=== PATIENT | female | born 1950 | race Caucasian/White ===

== ENCOUNTER 2018-05-27 14:21 | Inpatient (IN) ==
[2018-05-27] MEDS ORDERED: METOCLOPRAMIDE 10 MG/2 ML VIAL IV STA (14:41)
[2018-05-27] MEDS ORDERED: ONDANSETRON 4 MG/2 ML VIAL IV STA ×2 (14:41→15:00)
[2018-05-27] MEDS ORDERED: PANTOPRAZOLE 40 MG VIAL IV STA (14:41)
[2018-05-27] MEDS ORDERED: SODIUM CHLORIDE 0.9% 1,000 ML IV STA ×2 (14:41→16:43)
[2018-05-27] MEDS ORDERED: DICYCLOMINE 20 MG/2 ML AMP IM ONE (14:41)
[2018-05-27 16:10] LABS: Basophils # 0.1 10*3/uL (0.0-0.2); Basophils % 0.5 % (0.0-0.8); Eosinophils % 0.2 % (0.00-10.9); Hemoglobin 14.2 GM/DL (12.0-16.0); Immature Granulocytes % 0.3 %; Immature Granulocytes Absolute 0.06 #; Lymphocytes # 1.5 10*3/uL (1.4-4.0); Lymphocytes % 8.6 % (21.3-54.2); Mean Corpuscular HGB Conc 32.3 GM/DL (32-36); Mean Corpuscular Hemoglobin 29 PG (27-34); Mean Corpuscular Volume 89.4 FL (87-102); Mean Platelet Volume 10.3 FL (9.6-12.0); Monocytes # 0.6 10*3/uL (0.11-0.8); Monocytes % 3.6 % (1.7-12.7); Neutrophils # 15.2 10*3/uL (1.4-7.4); Neutrophils % 86.8 % (38.7-73.9); Platelet Count 350 T/CUMM (130-400); Red Blood Count 4.92 MC/CUMM (3.8-5.5); Red Cell Distribution Width 13.6 % (9.3-17.3); White Blood Count 17.5 T/CUMM (4-12)
[2018-05-27 16:30] LABS: Alanine Aminotransferase 42 U/L (13-56); Albumin 3.9 G/DL (3.4-5.0); Alkaline Phosphatase 73 U/L (45-117); Amylase 38 U/L (25-115); Aspartate Amino Transferase 26 U/L (0-37); Blood Urea Nitrogen 19 MG/DL (7-18); Calcium 9.4 MG/DL (8.5-10.1); Glucose 178 MG/DL (74-106); Osmolality,Calculated 280.7 MOS/KG (273-304); Potassium 3.7 MMOL/L (3.5-5.1); Sodium 138 MMOL/L (136-145); Total Protein 8.7 G/DL (6.4-8.3); Troponin I < 0.015 NG/ML (0.00-0.045)
[2018-05-27] MEDS ORDERED: cefTRIAXone 1,000 MG in SODIUM CHLORIDE 0.9% 100 ML IV STA (16:41)
[2018-05-27] MEDS ORDERED: metroNIDAZOLE INJ 500 MG in PREMIX 1 EACH IV STA (16:42)
[2018-05-27 16:57] LABS: Apearance,Urine Slightly Hazy (Clear); Bacteria,Urine Moderate /HPF (Few); Bilirubin,Urine Negative (Negative); Blood, Urine Small mg/dL (Negative); Glucose,Urine (UA) Negative (Negative); Granular Casts,Urine 26 /LPF (0-1); Hyaline Casts,Urine 1 /LPF (0-3); Ketones,Urine 20 mg/dL (Negative); Mucus,Urine Moderate /LPF (Occasional); Nitrite,Urine Positive (Negative); Protein,Urine 100 MG/DL; RBC,Urine 1 /HPF (0-4); Squamous Epithelial Cell,Urine Occasional /HPF (0-10); Urine Color Amber (Yellow); Urine Urobilinogen < 2.0 EU/DL (0.2-1.0); WBC,Urine 6 /HPF (0-6)
[2018-05-27] MEDS ORDERED: ONDANSETRON 4 MG/2 ML VIAL IV PRN (17:39)
[2018-05-27] MEDS ORDERED: MORPHINE 4 MG/1 ML VIAL IV PRN (17:39)
[2018-05-27] MEDS ORDERED: ALBUTEROL 2.5 MG/3 ML NEB RESP TX PRN (17:39)
[2018-05-27] MEDS ORDERED: SODIUM CHLORIDE 0.9% 600 ML IV ONE (17:45)
[2018-05-27] MEDS ORDERED: GLUCAGON 1 MG VIAL IM PRN (18:12)
[2018-05-27] MEDS ORDERED: DEXTROSE 50% 25 GM/50 ML VIAL IV PRN (18:12)
[2018-05-27] MEDS: PANTOPRAZOLE 40 MG VIAL IV SCH (20:04)
[2018-05-27] MEDS: SODIUM CHLORIDE 0.9% 1,000 ML IV SCH (20:06)
[2018-05-27] MEDS: PIPERACILLIN/TAZOBACTAM 3,375 MG in SODIUM CHLORIDE 0.9% 100 ML IV SCH (20:06)
[2018-05-27 22:33] LABS: Lactic Acid 2.5 MMOL/L (0.4-2.0)
[2018-05-27] MEDS: INSULIN LISPRO 100 UNIT/ML SUBCUT SCH (23:03)
[2018-05-28] MEDS ORDERED: metroNIDAZOLE INJ 500 MG in PREMIX 1 EACH IV SCH (00:30)
[2018-05-28] MEDS: PIPERACILLIN/TAZOBACTAM 3,375 MG in SODIUM CHLORIDE 0.9% 100 ML IV SCH ×3 (04:11→18:44)
[2018-05-28] MEDS: SODIUM CHLORIDE 0.9% 1,000 ML IV SCH ×3 (04:12→21:42)
[2018-05-28 05:06] LABS: Basophils # 0.1 10*3/uL (0.0-0.2); Basophils % 0.4 % (0.0-0.8); Eosinophils # 0.1 10*3/uL (0.0-0.87); Eosinophils % 0.8 % (0.00-10.9); Hematocrit 32.9 VOL% (35.7-47.0); Hemoglobin 10.6 GM/DL (12.0-16.0); Immature Granulocytes % 0.4 %; Immature Granulocytes Absolute 0.05 #; Lymphocytes # 1.4 10*3/uL (1.4-4.0); Lymphocytes % 10.1 % (21.3-54.2); Mean Corpuscular HGB Conc 32.2 GM/DL (32-36); Mean Corpuscular Hemoglobin 29 PG (27-34); Mean Corpuscular Volume 90.1 FL (87-102); Mean Platelet Volume 10.8 FL (9.6-12.0); Monocytes % 7.2 % (1.7-12.7); Neutrophils # 11.3 10*3/uL (1.4-7.4); Neutrophils % 81.1 % (38.7-73.9); Platelet Count 269 T/CUMM (130-400); Red Blood Count 3.65 MC/CUMM (3.8-5.5); Red Cell Distribution Width 13.9 % (9.3-17.3); White Blood Count 13.9 T/CUMM (4-12)
[2018-05-28] MEDS ORDERED: METOPROLOL TARTRATE 5 MG/5 ML VIAL IV ONE (05:27)
[2018-05-28 05:29] LABS: Albumin 2.5 G/DL (3.4-5.0); Calcium 7.4 MG/DL (8.5-10.1); Total Protein 6.2 G/DL (6.4-8.3)
[2018-05-28] MEDS: INSULIN LISPRO 100 UNIT/ML SUBCUT SCH ×3 (05:29→18:41)
[2018-05-28 05:30] LABS: Hypochromasia 1+; Ovalocytes Slight; Platelet Estimate Adequate
[2018-05-28] MEDS ORDERED: ENOXAPARIN 100 MG/ML SYRINGE SUBCUT SCH (09:00)
[2018-05-28] MEDS: METOPROLOL TARTRATE 50 MG TABLET PO SCH ×2 (09:27→21:41)
[2018-05-28] MEDS: RIVAROXABAN 20 MG TABLET PO SCH (09:27)
[2018-05-28] MEDS: PANTOPRAZOLE 40 MG VIAL IV SCH (21:40)
[2018-05-29] MEDS: INSULIN LISPRO 100 UNIT/ML SUBCUT SCH ×4 (00:24→17:42)
[2018-05-29] MEDS: SODIUM CHLORIDE 0.9% 1,000 ML IV SCH ×2 (02:26→16:34)
[2018-05-29] MEDS: PIPERACILLIN/TAZOBACTAM 3,375 MG in SODIUM CHLORIDE 0.9% 100 ML IV SCH ×3 (04:47→22:10)
[2018-05-29 06:23] LABS: Basophils % 0.6 % (0.0-0.8); Eosinophils # 0.3 10*3/uL (0.0-0.87); Eosinophils % 3.9 % (0.00-10.9); Hematocrit 29.1 VOL% (35.7-47.0); Hemoglobin 9.4 GM/DL (12.0-16.0); Immature Granulocytes % 0.3 %; Immature Granulocytes Absolute 0.02 #; Lymphocytes # 2.4 10*3/uL (1.4-4.0); Lymphocytes % 35.4 % (21.3-54.2); Mean Corpuscular HGB Conc 32.3 GM/DL (32-36); Mean Corpuscular Hemoglobin 30 PG (27-34); Mean Corpuscular Volume 92.1 FL (87-102); Mean Platelet Volume 10.7 FL (9.6-12.0); Monocytes # 0.4 10*3/uL (0.11-0.8); Monocytes % 6.3 % (1.7-12.7); Neutrophils # 3.7 10*3/uL (1.4-7.4); Neutrophils % 53.5 % (38.7-73.9); Platelet Count 212 T/CUMM (130-400); Red Blood Count 3.16 MC/CUMM (3.8-5.5); Red Cell Distribution Width 14.2 % (9.3-17.3); White Blood Count 6.9 T/CUMM (4-12)
[2018-05-29 06:43] LABS: Albumin 2.7 G/DL (3.4-5.0); Bilirubin,Total 0.7 MG/DL (0.2-1.0); Calcium 7.4 MG/DL (8.5-10.1); Osmolality,Calculated 286.7 MOS/KG (273-304); Potassium 3.4 MMOL/L (3.5-5.1); Total Protein 6.1 G/DL (6.4-8.3)
[2018-05-29] MEDS ORDERED: ACETAMINOPHEN 500 MG TABLET PO ONE (07:00)
[2018-05-29] MEDS ORDERED: PNEUMOCOCCAL VACCINE (13 VALENT) 0.5 ML SYRINGE IM ONE (08:00)
[2018-05-29] MEDS: METOPROLOL TARTRATE 50 MG TABLET PO SCH ×2 (09:51→20:56)
[2018-05-29] MEDS: RIVAROXABAN 20 MG TABLET PO SCH (09:51)
[2018-05-29] MEDS: ACETAMINOPHEN 325 MG TABLET PO PRN (16:05)
[2018-05-29] MEDS: PANTOPRAZOLE 40 MG VIAL IV SCH (22:10)
[2018-05-30] MEDS: PIPERACILLIN/TAZOBACTAM 3,375 MG in SODIUM CHLORIDE 0.9% 100 ML IV SCH (03:43)
[2018-05-30 04:32] LABS: Basophils % 0.6 % (0.0-0.8); Eosinophils # 0.2 10*3/uL (0.0-0.87); Eosinophils % 3.5 % (0.00-10.9); Hematocrit 29.6 VOL% (35.7-47.0); Hemoglobin 9.6 GM/DL (12.0-16.0); Immature Granulocytes % 0.3 %; Immature Granulocytes Absolute 0.02 #; Lymphocytes # 2.7 10*3/uL (1.4-4.0); Lymphocytes % 41.6 % (21.3-54.2); Mean Corpuscular HGB Conc 32.4 GM/DL (32-36); Mean Corpuscular Hemoglobin 29 PG (27-34); Mean Corpuscular Volume 89.2 FL (87-102); Mean Platelet Volume 10.7 FL (9.6-12.0); Monocytes # 0.5 10*3/uL (0.11-0.8); Monocytes % 7.7 % (1.7-12.7); Neutrophils % 46.3 % (38.7-73.9); Platelet Count 235 T/CUMM (130-400); Red Blood Count 3.32 MC/CUMM (3.8-5.5); White Blood Count 6.5 T/CUMM (4-12)
[2018-05-30 04:54] LABS: Albumin 2.9 G/DL (3.4-5.0); Bilirubin,Total 0.8 MG/DL (0.2-1.0); Calcium 7.5 MG/DL (8.5-10.1); Osmolality,Calculated 284.8 MOS/KG (273-304); Potassium 3.4 MMOL/L (3.5-5.1); Total Protein 6.2 G/DL (6.4-8.3)
[2018-05-30] MEDS ORDERED: hydrALAZINE 20 MG/1 ML VIAL IV PRN (08:49)
[2018-05-30] MEDS ORDERED: METOPROLOL TARTRATE 25 MG TABLET PO SCH (09:00)
[2018-05-30] MEDS ORDERED: PROPOFOL 200 MG/20 ML VIAL IV ONE (09:00)
[2018-05-30] MEDS ORDERED: METOPROLOL TARTRATE 50 MG TABLET PO SCH (09:00)
[2018-05-30] MEDS ORDERED: LIDOCAINE 1% 5 ML VIAL ONE (09:00)
[2018-05-30] MEDS: METOPROLOL TARTRATE 25 MG TABLET PO SCH ×2 (09:18→20:51)
[2018-05-30] MEDS ORDERED: cefTAZidime 500 MG in SODIUM CHLORIDE 0.9% 100 ML IV SCH (10:00)
[2018-05-30] MEDS: INSULIN LISPRO 100 UNIT/ML SUBCUT SCH ×4 (13:17→18:27)
[2018-05-30] MEDS: RIVAROXABAN 20 MG TABLET PO SCH (13:30)
[2018-05-30] MEDS: cefTAZidime 500 MG in SYRINGE 1 EACH IV SCH (13:45)
[2018-05-30] MEDS: SODIUM CHLORIDE 0.9% 1,000 ML IV SCH ×2 (14:03→14:05)
[2018-05-30] MEDS: ACETAMINOPHEN 325 MG TABLET PO PRN (17:33)
[2018-05-30] MEDS: LISINOPRIL 20 MG TABLET PO SCH (17:33)
[2018-05-30] MEDS: PANTOPRAZOLE 40 MG VIAL IV SCH (20:51)
[2018-05-31] MEDS: INSULIN LISPRO 100 UNIT/ML SUBCUT SCH ×4 (00:01→17:59)
[2018-05-31] MEDS: cefTAZidime 500 MG in SYRINGE 1 EACH IV SCH ×3 (02:45→09:51)
[2018-05-31] MEDS: SODIUM CHLORIDE 0.9% 1,000 ML IV SCH ×2 (05:04→18:00)
[2018-05-31] MEDS: LISINOPRIL 20 MG TABLET PO SCH (08:45)
[2018-05-31] MEDS: METOPROLOL TARTRATE 25 MG TABLET PO SCH ×2 (08:46→20:32)
[2018-05-31] MEDS: POTASSIUM CHLORIDE 20 MEQ TABLET PO PRN ×3 (09:03→14:09)
[2018-05-31] MEDS: LACTOBACILLUS ACIDOPHILUS/BULGARICUS CAPLET PO SCH (20:31)
[2018-05-31] MEDS: PANTOPRAZOLE 40 MG VIAL IV SCH (20:32)
[2018-05-31] MEDS: CIPROFLOXACIN 500 MG TABLET PO SCH (20:32)
[2018-05-31] MEDS: CHOLESTYRAMINE 4 GM PACK PO SCH (20:32)
[2018-06-01] MEDS: INSULIN LISPRO 100 UNIT/ML SUBCUT SCH ×4 (01:25→17:36)
[2018-06-01 04:43] LABS: Basophils # 0.1 10*3/uL (0.0-0.2); Basophils % 0.7 % (0.0-0.8); Eosinophils # 0.3 10*3/uL (0.0-0.87); Eosinophils % 2.8 % (0.00-10.9); Hematocrit 31.3 VOL% (35.7-47.0); Hemoglobin 10.5 GM/DL (12.0-16.0); Immature Granulocytes % 0.3 %; Immature Granulocytes Absolute 0.03 #; Lymphocytes # 2.4 10*3/uL (1.4-4.0); Lymphocytes % 26.6 % (21.3-54.2); Mean Corpuscular HGB Conc 33.5 GM/DL (32-36); Mean Corpuscular Hemoglobin 30 PG (27-34); Mean Corpuscular Volume 88.2 FL (87-102); Mean Platelet Volume 11.1 FL (9.6-12.0); Monocytes # 0.7 10*3/uL (0.11-0.8); Monocytes % 7.2 % (1.7-12.7); Neutrophils # 5.7 10*3/uL (1.4-7.4); Neutrophils % 62.4 % (38.7-73.9); Platelet Count 286 T/CUMM (130-400); Red Blood Count 3.55 MC/CUMM (3.8-5.5); Red Cell Distribution Width 13.9 % (9.3-17.3); White Blood Count 9.1 T/CUMM (4-12)
[2018-06-01 05:13] LABS: Calcium 8.1 MG/DL (8.5-10.1); Osmolality,Calculated 287.8 MOS/KG (273-304); Potassium 3.4 MMOL/L (3.5-5.1)
[2018-06-01] MEDS: CIPROFLOXACIN 500 MG TABLET PO SCH ×2 (08:37→20:46)
[2018-06-01] MEDS: LISINOPRIL 20 MG TABLET PO SCH (08:37)
[2018-06-01] MEDS: LACTOBACILLUS ACIDOPHILUS/BULGARICUS CAPLET PO SCH ×2 (08:37→20:45)
[2018-06-01] MEDS: METOPROLOL TARTRATE 25 MG TABLET PO SCH ×2 (08:37→20:45)
[2018-06-01] MEDS: CHOLESTYRAMINE 4 GM PACK PO SCH ×2 (08:38→20:46)
[2018-06-01] MEDS: ACETAMINOPHEN 325 MG TABLET PO PRN ×2 (08:40→13:01)
[2018-06-01] MEDS ORDERED: POTASSIUM CHLORIDE 20 MEQ/15 ML UDCUP PO ONE ×2 (13:07→13:30)
[2018-06-01] MEDS: SODIUM CHLORIDE 0.9% 1,000 ML IV SCH (14:19)
[2018-06-01] MEDS: PANTOPRAZOLE 40 MG VIAL IV SCH (20:46)
[2018-06-02] MEDS: INSULIN LISPRO 100 UNIT/ML SUBCUT SCH ×4 (01:03→17:43)
[2018-06-02] MEDS: SODIUM CHLORIDE 0.9% 1,000 ML IV SCH ×2 (02:21→10:30)
[2018-06-02 05:30] LABS: Bilirubin,Total 0.4 MG/DL (0.2-1.0); Calcium 8.2 MG/DL (8.5-10.1); Potassium 3.6 MMOL/L (3.5-5.1); Total Protein 6.8 G/DL (6.4-8.3)
[2018-06-02] MEDS: POTASSIUM CHLORIDE 20 MEQ TABLET PO PRN ×2 (07:11→09:23)
[2018-06-02] MEDS: CIPROFLOXACIN 500 MG TABLET PO SCH (09:23)
[2018-06-02] MEDS: LACTOBACILLUS ACIDOPHILUS/BULGARICUS CAPLET PO SCH (09:23)
[2018-06-02] MEDS: LISINOPRIL 20 MG TABLET PO SCH (09:23)
[2018-06-02] MEDS: METOPROLOL TARTRATE 25 MG TABLET PO SCH (09:23)
[2018-06-02] MEDS: CHOLESTYRAMINE 4 GM PACK PO SCH (09:24)
[2018-06-02] MEDS: ACETAMINOPHEN 325 MG TABLET PO PRN ×2 (12:00→15:33)
[2018-06-02] MEDS ORDERED: METOPROLOL TARTRATE 25 MG TABLET PO ONE (12:52)
[2018-06-02] MEDS ORDERED: LABETALOL 100 MG/20 ML VIAL IV ONE (16:00)
[2018-06-02] MEDS ORDERED: KETOROLAC 15 MG/1 ML VIAL IV ONE (16:02)
[2018-06-02] MEDS ORDERED: LOPERAMIDE 2 MG CAPSULE PO PRN (16:02)
[2018-06-02 16:16] VITALS: BP 157/107
[2018-06-02] MEDS ORDERED: METOPROLOL TARTRATE 50 MG TABLET PO SCH (21:00)
== END 2018-06-02 19:14 | disposition home or self-care (01) | DRG 872 ==
LOC: N.ED 14:21 → N.EDINP 17:30 → SUATTDRO 17:30 → N.ICU 19:50 → N.3E 05-29 00:01
PROVIDERS: ADMIT Internal Medicine; ATTEND Hospitalist

== ENCOUNTER 2019-07-03 02:33 | Inpatient (IN) ==
[2019-07-03] MEDS ORDERED: MORPHINE 4 MG/1 ML VIAL IV PRN ×3 (03:47→10:55)
[2019-07-03] MEDS ORDERED: ONDANSETRON 4 MG/2 ML VIAL IV PRN (03:47)
[2019-07-03] MEDS ORDERED: MORPHINE 4 MG/1 ML VIAL IV STA (03:50)
[2019-07-03] MEDS ORDERED: ONDANSETRON 4 MG/2 ML VIAL IV STA (03:50)
[2019-07-03] MEDS: DEXTROSE 5% LACTATED RINGERS 1,000 ML IV SCH ×3 (05:21→21:49)
[2019-07-03] MEDS ORDERED: LACTULOSE 20 GM/30 ML UDCUP PO PRN (07:27)
[2019-07-03] MEDS ORDERED: hydrALAZINE 20 MG/1 ML VIAL IV PRN (07:29)
[2019-07-03] MEDS ORDERED: GLUCAGON 1 MG VIAL IM PRN (07:30)
[2019-07-03] MEDS ORDERED: DEXTROSE 10% 25 GM/250 ML BAG IV PRN (07:30)
[2019-07-03 08:23] LABS: INR 1.1; PT Patient Result 11.4 SECS (9.6-12.2); Partial Thromboplastin Time 26.3 SECS (20.8-36.0)
[2019-07-03 08:27] LABS: Basophils # 0.1 10*3/uL (0.0-0.2); Basophils % 0.3 % (0.0-0.8); Eosinophils % 0.1 % (0.00-10.9); Hematocrit 36.9 VOL% (35.7-47.0); Hemoglobin 11.2 GM/DL (12.0-16.0); Immature Granulocytes % 0.7 %; Immature Granulocytes Absolute 0.11 #; Lymphocytes # 1.2 10*3/uL (1.4-4.0); Lymphocytes % 7.3 % (21.3-54.2); Mean Corpuscular HGB Conc 30.4 GM/DL (32-36); Mean Corpuscular Volume 82.9 FL (87-102); Mean Platelet Volume 11.1 FL (9.6-12.0); Monocytes % 3.9 % (1.7-12.7); Neutrophils % 87.7 % (38.7-73.9); Platelet Count 325 T/CUMM (130-400); Red Blood Count 4.45 MC/CUMM (3.8-5.5); Red Cell Distribution Width 15.3 % (9.3-17.3); White Blood Count 16.8 T/CUMM (4-12)
[2019-07-03 08:48] LABS: Albumin 3.3 G/DL (3.4-5.0); Bilirubin,Total 0.4 MG/DL (0.2-1.0); Osmolality,Calculated 282.7 MOS/KG (273-304); Thyroid Stimulating Hormone 5.31 uIU/ml (0.358-3.74); Total Protein 7.3 G/DL (6.4-8.3)
[2019-07-03] MEDS: INSULIN REGULAR 100 UNIT/ML SUBCUT SCH ×4 (09:48→21:47)
[2019-07-03] MEDS: KETOROLAC 15 MG/1 ML VIAL IV PRN (10:08)
[2019-07-03] MEDS: PANTOPRAZOLE 40 MG VIAL IV SCH (10:10)
[2019-07-03 10:46] LABS: Apearance,Urine CLEAR (Clear); Bilirubin,Urine Negative (Negative); Blood, Urine Small mg/dL (Negative); Glucose,Urine (UA) 150 mg/dL (Negative); Ketones,Urine Negative (Negative); Mucus,Urine Occasional /LPF (Occasional); Nitrite,Urine Negative (Negative); Protein,Urine Negative; RBC,Urine 1 /HPF (0-4); Squamous Epithelial Cell,Urine Occasional /HPF (0-10); Urine Color Yellow (Yellow); Urine Specific Gravity 1.042 (1.001-1.035); Urine Urobilinogen < 2.0 EU/DL (0.2-1.0); WBC,Urine 1 /HPF (0-6)
[2019-07-04 04:56] LABS: Basophils % 0.4 % (0.0-0.8); Eosinophils # 0.2 10*3/uL (0.0-0.87); Eosinophils % 3.5 % (0.00-10.9); Hematocrit 30.1 VOL% (35.7-47.0); Hemoglobin 9.1 GM/DL (12.0-16.0); Immature Granulocytes % 0.6 %; Immature Granulocytes Absolute 0.04 #; Lymphocytes # 1.7 10*3/uL (1.4-4.0); Lymphocytes % 24.8 % (21.3-54.2); Mean Corpuscular HGB Conc 30.2 GM/DL (32-36); Mean Corpuscular Volume 83.1 FL (87-102); Mean Platelet Volume 10.8 FL (9.6-12.0); Monocytes % 8.3 % (1.7-12.7); Neutrophils % 62.4 % (38.7-73.9); Platelet Count 246 T/CUMM (130-400); Red Blood Count 3.62 MC/CUMM (3.8-5.5); Red Cell Distribution Width 15.6 % (9.3-17.3); White Blood Count 6.9 T/CUMM (4-12)
[2019-07-04 05:19] LABS: Calcium 8.1 MG/DL (8.5-10.1)
[2019-07-04 05:30] LABS: Free T4 (Free Thyroxine) 1.12 NG/DL (0.76-1.46)
[2019-07-04] MEDS: DEXTROSE 5% LACTATED RINGERS 1,000 ML IV SCH ×3 (05:31→21:05)
[2019-07-04] MEDS: KETOROLAC 15 MG/1 ML VIAL IV PRN (05:32)
[2019-07-04] MEDS: INSULIN REGULAR 100 UNIT/ML SUBCUT SCH ×4 (07:55→21:07)
[2019-07-04] MEDS: PANTOPRAZOLE 40 MG VIAL IV SCH (08:34)
[2019-07-04] MEDS: lisinopriL 20 MG TABLET PO SCH (10:43)
[2019-07-04] MEDS: LORATADINE 10 MG TABLET PO SCH (10:44)
[2019-07-04] MEDS: METOPROLOL TARTRATE 50 MG TABLET PO SCH ×2 (10:44→20:57)
[2019-07-05] MEDS: DEXTROSE 5% LACTATED RINGERS 1,000 ML IV SCH (04:49)
[2019-07-05 05:33] LABS: Calcium 8.2 MG/DL (8.5-10.1); Osmolality,Calculated 288.7 MOS/KG (273-304)
[2019-07-05] MEDS: INSULIN REGULAR 100 UNIT/ML SUBCUT SCH (08:28)
[2019-07-05 09:03] VITALS: BP 148/73
[2019-07-05] MEDS: METOPROLOL TARTRATE 50 MG TABLET PO SCH (09:14)
[2019-07-05] MEDS: lisinopriL 20 MG TABLET PO SCH (09:14)
[2019-07-05] MEDS: LORATADINE 10 MG TABLET PO SCH (09:14)
[2019-07-05] MEDS: PANTOPRAZOLE 40 MG VIAL IV SCH (09:14)
== END 2019-07-05 10:09 | disposition home or self-care (01) ==
LOC: EDBD → EDUNIT# → N.EDINP 02:33 → N.ED 02:33 → N.3E 04:34
PROVIDERS: ADMIT Surgery; ATTEND Surgery